=== PATIENT | male | born 1995 | race Caucasian/White ===

== ENCOUNTER 2020-07-11 08:46 | Emergency (ER) | payer MEDICAID ==
[2020-07-11 09:23] LABS: BASOPHILS # (AUTO) 0.1 10^3/uL (0.0-0.1); BASOPHILS % (AUTO) 0.7 %; EOSINOPHILS # (AUTO) 0.1 10^3/uL (0.0-0.7); EOSINOPHILS % (AUTO) 0.7 %; HGB - HEMOGLOBIN 15.5 g/dL (14.0-18.0); LYMPHOCYTES # (AUTO) 1.8 10^3/uL (1.5-3.5); LYMPHOCYTES % (AUTO) 18.5 %; MEAN CORPUSCULAR HEMOGLOBIN 29.3 pg (27.0-31.0); MEAN CORPUSCULAR HGB CONC 33.8 g/dL (32.0-36.0); MEAN CORPUSCULAR VOLUME 86.8 fL (80.0-94.0); MEAN PLATELET VOLUME 9.5 fL (7.4-11.4); MONOCYTES # (AUTO) 0.6 10^3/uL (0.0-1.0); MONOCYTES % (AUTO) 5.7 %; NEUTROPHILS # (AUTO) 7.3 10^3/uL (1.5-6.6); NEUTROPHILS % (AUTO) 74.2 %; PLT - PLATELET COUNT 315 10^3/uL (130-450); RED BLOOD COUNT 5.29 10^6/uL (4.70-6.10); RED CELL DISTRIBUTION WIDTH 11.5 % (12.0-15.0); WHITE BLOOD COUNT 9.8 x10^3/uL (4.8-10.8)
--- NOTE | 2020-07-11 09:26 | XRAY Report ---
PROCEDURE: Chest 1 View X-Ray INDICATIONS: Chest pain TECHNIQUE: One view of the chest was acquired. COMPARISON: None FINDINGS: Surgical changes and devices: None. Lungs and pleura: No pleural effusions or pneumothorax. Lungs are clear. Mediastinum: Mediastinal contours appear normal. Heart size is normal. Bones and chest wall: No suspicious bony lesions. Overlying soft tissues appear unremarkable. IMPRESSION: No acute cardiopulmonary pathology. Reviewed by: Chet Gore MD on 07/11/2020 8:25 AM [facility] Approved by: Chet Gore MD on 07/11/2020 8:25 AM [facility] Station ID: [id number]
[2020-07-11 09:35] LABS: ALBUMIN 4.8 g/dL (3.2-5.5); ALBUMIN/GLOBULIN RATIO 1.7 (1.0-2.2); BILIRUBIN,TOTAL 1.1 mg/dL (0.2-1.0); CALCIUM 9.7 mg/dL (8.5-10.3); CREATININE 0.9 mg/dL (0.6-1.2); TOTAL PROTEIN 7.6 g/dL (6.7-8.2)
[2020-07-11 10:47] VITALS: BP 132/91
--- NOTE | 2020-07-11 10:49 | ED Physician Documentation ---
History of Present Illness - Stated complaint Stated Complaint: CHEST PRESSURE,SWEATING - Chief complaint Chief Complaint: Cardiac - History obtained from History obtained from: Patient - Additonal information Additional information: Patient comes emergency department chief complaint of a feeling of chest pressure and cold chills, accompanied by nausea, while getting in the shower after going for a run. Patient states that he did not feel bad during his run and came home and was still feeling well. However, when he went to get in the shower not too long after that, he began to have the sensation described above. He states the pain did not radiate anywhere else and felt mostly like a pressure. He denies any palpitations. He states he got a little bit of a sweat when he felt cold. This happened around 6:00 this morning and lasted for 15 to 20 minutes. He states nothing seems to make it better or worse and that it just went away on its own. He has been totally asymptomatic ever since. The patient states that this is never happened to him before. He is healthy otherwise and has been running on a regular basis and has not had any trouble with chest pain or dyspnea on exertion . He states that he did vape and smoke for a bit while he was a teenager, but this is been over 5 years ago and he has not had anything since. No family history of coronary artery disease at a young age. No other complaints at this time. Patient denies any lower extremity edema that is unusual, or pain. He states that he has gotten intermittent edema in his left lower extremity ever since having surgery some years ago, but this has not been worse than usual. Review of Systems Ten Systems: 10 systems reviewed and negative Constitutional: reports: Chills, Sweats. denies: Fever Eyes: reports: Reviewed and negative Ears: reports: Reviewed and negative Nose: reports: Reviewed and negative Throat: reports: Reviewed and negative Cardiac: reports: Chest pain / pressure. denies: Palpitations, Calf pain Respiratory: reports: Reviewed and negative. denies: Dyspnea GI: reports: Reviewed and negative : reports: Reviewed and negative Skin: reports: Reviewed and negative Musculoskeletal: reports: Reviewed and negative Neurologic: reports: Reviewed and negative Psychiatric: reports: Reviewed and negative Endocrine: reports: Reviewed and negative Immunocompromised: reports: Reviewed and negative PD PAST MEDICAL HISTORY - Present Medications Home Medications: Ambulatory Orders Medication Instructions Recorded Confirmed Famotidine [Pepcid] 20 mg PO ONCE 12/10/20 12/10/20 Omeprazole Magnesium 20 mg PO DAILY 07/11/20 07/11/20 Ondansetron Odt [Zofran Odt] 4 mg PO DAILY 07/11/20 07/11/20 - Allergies Allergies/Adverse Reactions: Allergies Allergy/AdvReac Type Severity Reaction Status Date / Time No Known Drug Allergies Allergy Verified 07/11/20 08:59 PD ED PE NORMAL - Vitals Vital signs reviewed: Yes - General General: Alert and oriented X 3, No acute distress - HEENT HEENT: Atraumatic, PERRL, EOMI, Moist mucous membranes - Neck Neck: Supple, no meningeal sign - Cardiac Cardiac: RRR, No murmur, Strong equal pulses - Respiratory Respiratory: No respiratory distress, Clear bilaterally - Abdomen Abdomen: Soft, Non tender, Non distended - Derm Derm: Normal color, Warm and dry, No rash - Extremities Extremities: No deformity, No edema, No calf tenderness / cord - Neuro Neuro: Alert and oriented X 3, Other (Grossly normal) - Psych Psych: Normal mood, Normal affect Results - Vitals Vitals: Oxygen O2 Source Room air - EKG (time done) 0902 Rate: Rate (enter#) (60) Rhythm: NSR [place]: Normal Intervals: Normal CT QRS: Normal Ischemia: Normal ST segments, T wave inversion (lead 3) Compare to prior EKG: Old EKG unavailable Computer interpretation: Agree with computer - Labs Labs: Laboratory Tests 07/11/20 07/11/20 07/11/20 09:18 09:18 09:18 WBC 9.8 RBC 5.29 Hgb 15.5 Hct 45.9 MCV 86.8 MCH 29.3 MCHC 33.8 RDW 11.5 L Plt Count 315 MPV 9.5 Neut # (Auto) 7.3 H Lymph # (Auto) 1.8 [place] [facility] # (Auto) 0.6 Eos # (Auto) 0.1 Baso # (Auto) 0.1 Absolute Nucleated RBC 0.00 Nucleated RBC % 0.0 Sodium 137 Potassium 3.8 Chloride 101 Carbon Dioxide 28 Anion Gap 8.0 BUN 14 Creatinine 0.9 Estimated GFR (MDRD) 104 Glucose 96 Calcium 9.7 Total Bilirubin 1.1 H AST 22 ALT 37 Alkaline Phosphatase 41 L Troponin I High Sens 6.7 Total Protein 7.6 Albumin 4.8 Globulin 2.8 Albumin/Globulin Ratio 1.7 Lipase 25 - Rads (name of study) cxr Radiology: Final report received, EMP read indepedently, See rad report (neg) PD MEDICAL DECISION MAKING - ED course Complexity details: reviewed results, re-evaluated patient, considered differential, d/w patient ED course: The patient was evaluated by myself in the emergency department and was very well-appearing. He was very low risk for coronary artery disease and the episode did not occur actually during exertion. However, given the patient had chest pressure with some diaphoresis, nausea, I felt that he should be worked up initially with EKG and labs. These, as well as chest x-ray, look good. I discussed with the patient that my suspicion for coronary artery disease/acute coronary syndrome is low. The patient is extremely low risk and has a history of GERD, which may have contributed. We have discussed that if he has any of these episodes during exertion he should come back to the emergency department immediately. However, if he has no further episodes he may follow-up with his primary care physician routinely, as otherwise planned. If he continues to have the occasional episode outside of exertion, then he should plan to follow-up with his primary care physician when he returns to his home in [place] on July 20, and should discuss further work-up, including whether a stress test is indicated. Patient is agreeable to the plan. Departure - Departure Disposition: 01 , Self Care Clinical Impression: Chest pain Qualifiers: Chest pain type: unspecified Qualified Code(s): R07.9 - Chest pain, unspecified Condition: Stable Instructions: ED Chest Pain Atypical Unkn Cause Comments: Your labs, EKG, and chest x-ray all look good. It is not clear what caused your episode of chest discomfort today. You are extremely low risk for Coronary artery disease, the underlying condition that causes heart attacks. However, if you do have any further episodes like this that occur actually during exertion, you should return to the emergency department for reevaluation. If you continue to have episodes occasionally outside of exertion, then you should follow-up with your primary care physician when you return home to [place] to discuss whether further testing, including stress test, is a good idea. If you do not have any further episodes, then this is most likely a benign event. You may continue to exercise as usual, at this point. Discharge Date/Time: 07/11/20 11:06
== END 2020-07-11 11:06 | disposition home or self-care (01) ==
LOC: ED 08:46
DX: R07.89 Other chest pain (principal); K21.9 Gastro-esophageal reflux disease without esophagitis
CPT/HCPCS: 36415; 80053; 83690; 84484; 85025; 93005; 99284